=== PATIENT | female | born 1990 | race Caucasian/White ===

== ENCOUNTER 2016-11-15 18:01 | Inpatient (IN) | payer OTHER ==
[~2016-11-15] VITALS: Ht 167.6 cm; Wt 86.0 kg
[2016-11-15] MEDS ORDERED: ZANTTAB PO (18:13)
[2016-11-15] MEDS ORDERED: PRENTAB9 PO (18:13)
[2016-11-15 18:22] VITALS: BP 128/64
[2016-11-15] MEDS ORDERED: LR 1,000 ML IV SCH (18:47)
[2016-11-15] MEDS ORDERED: PENICILLIN G POTASSIUM IV 5 MU in D5W MINI-BAG PLUS 100 ML IV STA (18:47)
[2016-11-15 19:18] LABS: MEAN CORPUSCULAR HEMOGLOBIN 31.8 pg (27.0-33.0); MEAN CORPUSCULAR VOLUME 93.3 fl (80.0-96.0); WHITE BLOOD COUNT 13.6 K/mm3 (4.0-10.0)
[2016-11-15] MEDS ORDERED: FENTANYL 2MCG/ML ROPIVACAINE 0.2% IN 0.9% NACL 200ML IVBAG As Ordered ONE (19:50)
[2016-11-15] MEDS ORDERED: EPIDURAL COMMENT XX SCH (21:00)
[2016-11-15] MEDS ORDERED: ONDANSETRON 4MG/2ML VIAL (J2405) IV PRN ×2 (21:00→23:45)
[2016-11-15] MEDS ORDERED: NALOXONE INJ 0.4 MG/1 ML VIAL (J2310) IV PRN (21:00)
[2016-11-15] MEDS ORDERED: ePHEDrine SULFATE 25 MG/5 ML(5MG/ML) SYRINGE IV PRN (21:00)
[2016-11-15] MEDS ORDERED: FENTANYL/ROPIVACAINE/NACL BAG 200 ML EPIDURAL SCH (21:00)
[2016-11-15] MEDS ORDERED: EPIDURAL/PCA KEYS XX PRN (21:00)
[2016-11-15] MEDS ORDERED: diphenhydrAMINE INJ 50MG/ML VIAL (J1200) IV PRN (21:00)
[2016-11-15] MEDS ORDERED: LACTATED RINGER'S 1000 ML IV PRN (21:00)
[2016-11-15] MEDS ORDERED: REFRIGERATOR IV KEYS XX PRN (21:00)
[2016-11-15] MEDS ORDERED: OXYTOCIN 30 UNITS IN 0.9% NaCl 500ML IV BAG (J2590) As Ordered ONE (21:16)
[2016-11-15] MEDS ORDERED: PENICILLIN G POTASSIUM IV 2.5 MU in D5W 100 ML IV SCH (23:00)
[2016-11-15] MEDS ORDERED: OXYTOCIN DRIP 30 UNITS in APPROPRIATE DILUENT 1 EA IV SCH (23:42)
[2016-11-15] MEDS ORDERED: METHYLERGONOVINE MALEATE 0.2 MG/ML VIAL (J2210) IM PRN (23:45)
[2016-11-15] MEDS ORDERED: PROMETHAZINE 25 MG TAB PO PRN (23:45)
[2016-11-15] MEDS ORDERED: DOCUSATE SODIUM 100 MG CAP PO PRN (23:45)
[2016-11-15] MEDS ORDERED: MEASLES,MUMPS,RUBELLA VACCINE INJ (MMR-II) (90707) SC SCH (23:45)
[2016-11-15] MEDS ORDERED: RHOGAM 300 MCG (1500 IU) INJ (J2790) IM SCH (23:45)
[2016-11-15] MEDS ORDERED: DIBUCAINE 1% OINTMENT 30GM TOP PRN (23:45)
[2016-11-16 01:32] VITALS: BP 131/68
[2016-11-16] MEDS: IBUPROFEN 800 MG TAB PO PRN ×3 (01:37→17:43)
[2016-11-16 05:43] VITALS: BP 119/71
[2016-11-16] MEDS: PRENATAL VITAMINS CHEWABLE TABLET PO SCH (08:20)
[2016-11-16] MEDS: FAMOTIDINE 20 MG TAB PO SCH ×2 (10:40→20:59)
[2016-11-16] MEDS: ACETAMINOPHEN 500 MG TAB PO PRN ×2 (12:37→21:02)
[2016-11-16 18:03] VITALS: BP 122/66
[2016-11-16] MEDS ORDERED: raNITIdine SYRUP 150 MG/10 ML UDC GT SCH (21:00)
[2016-11-17] MEDS: IBUPROFEN 800 MG TAB PO PRN (03:57)
[2016-11-17 05:39] VITALS: BP 110/56
[2016-11-17] MEDS: PRENATAL VITAMINS CHEWABLE TABLET PO SCH (07:32)
[2016-11-17] MEDS: FAMOTIDINE 20 MG TAB PO SCH (07:32)
[2016-11-17] MEDS ORDERED: IBUP-1114 PO (10:53)
[2016-11-17] MEDS ORDERED: ACET50TA PO (10:53)
[2016-11-17] MEDS ORDERED: DIBU1OIN TOP (10:53)
[2016-11-17] MEDS ORDERED: COLA100C5 PO (10:53)
--- NOTE | 2016-11-17 16:21 | IPN ---
DATE:11/17/2016 This lady has requested circumcision of the male . After discussing risks and benefits of circumcision medical and nonmedical indications, penile block and aftercare care, signed a witnessed the consent form answered all questions. We now await the clearance by the leather production worker.
--- NOTE | 2016-11-17 21:46 | DSES ---
DATE OF ADMISSION: 11/15/2016 DATE OF DISCHARGE: 11/17/2016 HISTORY/HOSPITAL COURSE: This lady is a 25-year-old 4, now para 3, admitted at 40 and 6/7 weeks of gestation, active labor. She had a spontaneous vaginal delivery of live male 8 pounds 2 ounces 3696 grams, scores of 9 and 9 at one and five minutes respectively. 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 On discharge today, her hemoglobin is 14.2, hematocrit 42.4 and platelets are 107. Her vital signs on discharge are blood pressure 110/56, respirations 18, pulse 68, temperature 97.6. We discussed phlebitis, cystitis, mastitis, metritis and cellulitis, diet, excise, pain management, perineal, breast and wound care. On discharge, she is normocephalic, atraumatic. Neck full range of motion. Pupils equal and reactive to light. Distal pulses symmetric. No evidence of deep venous thrombosis (DVT), pulmonary embolism (PE) or superficial phlebitis. Lungs are clear bilaterally to bases. No wheezes or rhonchi. No costovertebral angle tenderness. Uterus two below. Lochia is moderate. Four-quadrant bowel sounds are normal. Perineum is healing. No rashes, lesions or pruritus. No arthralgia, myalgia. No complaints of cough, wheezes, shortness of breath or dyspnea on exertion. No chest pain, not bleeding. Neuro complete. No incontinence, urgency or frequency. No nausea, vomiting, diarrhea or constipation. No diabetic issues. 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 Last Pap smear was 2003. Past medical history unremarkable. Surgical history unremarkable. Family she noncontributory. She does not smoke. She does not abuse drugs. Does not use alcohol. She is . There is no domestic violence. In summary we have a term gestation delivered a live male 8 pounds 2 ounces at discharge, to followup in six weeks' time at maternity clinic. Was given her medications on discharge.
== END 2016-11-17 12:00 | disposition home or self-care (01) | DRG 775 ==
LOC: M LDO 18:01 → M LDI 18:45 → M OBS 11-16 01:11
PROVIDERS: ADMIT Obstetrics & Gynecology; ATTEND Obstetrics & Gynecology
PROC: 10E0XZZ Delivery of Products of Conception, External Approach (ICD-10-PCS; principal; 2016-11-15)
DX: O48.0 Post-term pregnancy (principal); O99.824 Streptococcus B carrier state complicating childbirth; Z3A.40 40 weeks gestation of pregnancy; Z37.0 Single live birth

== ENCOUNTER 2017-02-16 11:07 | Day surgery (SDC) | payer OTHER ==
[~2017-02-16] VITALS: Ht 167.6 cm; Wt 81.6 kg
[~2017-02-16 11:07] MED LIST: ACET50TA PO; COLA100C5 PO; DIBU1OIN TOP; IBUP-1114 PO; PRENTAB9 PO; ZANTTAB PO
[2017-02-16] MEDS ORDERED: LR 1,000 ML IV ONE (11:15)
[2017-02-16 11:45] LABS: CONTROL LINE UCG INT CTR LINE PRESENT
[2017-02-16] MEDS ORDERED: fentaNYL 100 MCG/2 ML INJECTION (J3010) As Ordered ONE (12:28)
[2017-02-16] MEDS ORDERED: MIDAZOLAM INJ 2 MG/2 ML VIAL (J2250) As Ordered ONE (12:29)
[2017-02-16] MEDS ORDERED: LIDOCAINE 1% SDV INJ 30 ML VIAL As Ordered ONE (12:57)
[2017-02-16] MEDS ORDERED: BUPIVACAINE HCL 0.25% 30 ML VIAL As Ordered ONE (12:57)
[2017-02-16] MEDS ORDERED: ONDANSETRON 4MG/2ML VIAL (J2405) As Ordered ONE (13:30)
[2017-02-16] MEDS ORDERED: PROPOFOL 200 MG/20 ML VIAL As Ordered ONE (13:30)
[2017-02-16] MEDS ORDERED: ROCURONIUM BROMIDE 50 MG/5 ML VIAL As Ordered ONE (13:30)
[2017-02-16] MEDS ORDERED: KETOROLAC 60 MG/2 ML VIAL (J1885) As Ordered ONE (13:30)
[2017-02-16] MEDS ORDERED: dexameTHASONE 4 MG/ML 1ML VIAL (J1100) As Ordered ONE (13:30)
[2017-02-16] MEDS ORDERED: LIDOCAINE 2% INJ 100 MG/5 ML SDV (FOR ANES.) As Ordered ONE (13:30)
[2017-02-16] MEDS ORDERED: HYDROmorphone HCL 2 MG/ML 1ML VIAL (J1170) As Ordered ONE (13:39)
[2017-02-16] MEDS ORDERED: SUGAMMADEX SODIUM 500 MG/5 ML VIAL (BRIDION) As Ordered ONE (13:58)
[2017-02-16] MEDS ORDERED: PERCOCET 5MG/325MG TAB As Ordered ONE (14:17)
[2017-02-16] MEDS: PERCOCET 5MG/325MG TAB PO PRN ×2 (14:27→14:59)
[2017-02-16] MEDS ORDERED: LR 1,000 ML IV SCH (14:30)
[2017-02-16] MEDS ORDERED: METOCLOPRAMIDE INJ 10MG/2ML VIAL (J2765) IV PRN (14:30)
[2017-02-16] MEDS ORDERED: ONDANSETRON 4MG/2ML VIAL (J2405) IV PRN (14:30)
[2017-02-16] MEDS ORDERED: NORCO, ANEXSIA 5/325MG TABLET (HYDROcodone/ACETAMINOPHEN) PO PRN (14:30)
[2017-02-16] MEDS ORDERED: MEPERIDINE INJ 25 MG/ML VIAL (J2175) IV PRN (14:30)
[2017-02-16] MEDS ORDERED: fentaNYL 100 MCG/2 ML INJECTION (J3010) IV PRN (14:30)
[2017-02-16 16:20] VITALS: BP 136/70
--- NOTE | 2017-04-16 10:23 | ROOPDOC ---
[facility] Report Of Operation Report of Operation DATE OF PROCEDURE: 02/16/17 PREPROCEDURE DIAGNOSES: Diastases of abdominal wall, small umbilical hernia. POSTPROCEDURE DIAGNOSES: Diastases of midline abdominal wall, no hernia defect found. PROCEDURE: Diagnostic laparoscopy. SURGEON: Vicente Quijano MD [employer] INSTRUMENT REPAIRER: ANESTHESIA: Gen. anesthesia. ESTIMATED BLOOD LOSS: Approximately 5 mL. COMPLICATIONS: None. REMARKS: 26-year-old female, moderately obese, abdomen fairly rounded with a wide diastases of the abdominal wall complaining of a lump with discomfort just on top of her umbilicus.. PROCEDURE NOTE: Despite feeling the possible lump at the area of the umbilicus I did not see any distinct fascial defect at the umbilicus. DESCRIPTION OF PROCEDURE: .Patient was given a dose of Ancef 2 g IV for prophylactic antibiotic. She is brought to the operating room, placed supine on the table. Sequential Compression boots placed on both lower extremities for DVT prophylaxis. General endotracheal anesthesia started without any difficulty. Her abdomen was then prepped and draped widely in usual sterile fashion.Timeout was performed to verify correct patient, procedure site and additional clinical information prior to beginning the procedure. Entry to the abdomen done through a small incision at the left upper quadrant area, laterally placed close to the anterior axillary line. The Veress needle was inserted. Intra-abdominal location confirmed with saline drop technique. CO2 insufflation done to a pressure of 15 mmHg. Using the same incision a 5 mm Visiport was placed under direct vision of laparoscope. She was placed in a slight right lateral decubitus to gain some space on the left side of the abdomen. A second working port was placed at the left lower quadrant area above the anterior superior iliac spine level. We used a 5 mm 30 laparoscope for the procedure. On entry into the abdomen, there was some thick fatty deposition along the peritoneum just below the umbilicus. She hasn't attenuated falciform ligament several centimeters above this area. Clearly the midline area is weak secondary to the diastases of the rectus muscles which extends from the epigastric area to below the umbilical skin cleft. On palpation the area underneath the umbilicus is quite thinned out but there was no fascial defect. I could push the area down quite a lot without any bulging defect. I cleared off the fatty appendage from the peritoneum from just below the umbilicus to the level of the falciform ligament to see if there is any clear fascial defect that needs to be repaired but they could not find any. At this point with the absence of a clear fascial defect I terminated the procedure. I severed the area underneath where we worked to make sure there is no active bleeding or injury. The abdomen was then deflated and the 5 mm ports were removed. 4-0 Monocryl was used to close the 25 mm port incisions. Dermabond was then used to cover the incision. Patient was then promptly awakened, extubated and brought to recovery room stable. Findings intraoperatively were discussed with the patient in the postoperative holding area. VICENTE QUIJANO MD Apr 16, 2017 10:23
== END 2017-02-16 16:46 | disposition home or self-care (01) ==
LOC: M SDC 11:07
PROVIDERS: ATTEND Surgery
DX: M62.08 Separation of muscle (nontraumatic), other site (principal); K21.9 Gastro-esophageal reflux disease without esophagitis; G43.909 Migraine, unspecified, not intractable, without status migrainosus; R06.83 Snoring
CPT/HCPCS: 49320; 84703; J0690; J1100; J1170; J1885; J2250; J2405; J3010

== ENCOUNTER → 2018-04-26 | Outpatient (REF) | payer OTHER ==
[2018-04-26 14:14] LABS: BASO % 0.5 % (0.0-1.0); EOS # 0.1 10^3/uL (0.0-0.50); EOS % 1.2 % (0.0-3.0); HEMOGLOBIN 14.5 g/dl (12.0-15.5); IMMATURE GRANULOCYTE % 0.3 % (0-3.0); LYMPH # 1.7 10^3/uL (1.5-6.5); LYMPH % 26.6 % (24.0-44.0); MEAN CORPUSCULAR HEMOGLOBIN 30.2 pg (27.0-33.0); MEAN CORPUSCULAR HGB CONC 33.7 g/dl (32.0-36.5); MEAN CORPUSCULAR VOLUME 89.6 fl (80.0-96.0); MONO # 0.5 10^3/uL (0.0-0.8); MONO % 7.5 % (0.0-5.0); NEUTROPHILS # 4.2 10^3/uL (1.8-7.7); NEUTROPHILS % 63.9 % (36.0-66.0); PLATELET COUNT, AUTOMATED 171 10^3/uL (150-450); RED CELL DISTRIBUTION WIDTH 12.5 % (11.5-14.5); WHITE BLOOD COUNT 6.5 10^3/uL (4.0-10.0)
[2018-04-26 14:35] LABS: ALBUMIN 3.8 GM/DL (3.2-5.2); ALBUMIN/GLOBULIN RATIO 0.97 (1.00-1.93); ALKALINE PHOSPHATASE 102 U/L (45-117); ALT/SGPT 17 U/L (12-78); ANION GAP 6 MEQ/L (8-16); AST/SGOT 8 U/L (7-37); BILIRUBIN,TOTAL 0.6 MG/DL (0.2-1.0); BLOOD UREA NITROGEN 11 MG/DL (7-18); CALCIUM LEVEL 8.7 MG/DL (8.5-10.1); CARBON DIOXIDE LEVEL 28 MEQ/L (21-32); CHLORIDE LEVEL 105 MEQ/L (98-107); CREATININE FOR GFR 0.89 MG/DL (0.55-1.30); GLOMERULAR FILTRATION RATE > 60.0 (>60); POTASSIUM SERUM 4.3 MEQ/L (3.5-5.1); RHEUMATOID FACTOR QUANT < 10.0 IU/ML (<15.0); SODIUM LEVEL 139 MEQ/L (136-145); TOTAL 25(OH) VITAMIN D 29.4 NG/ML (30.0-100.0); TOTAL PROTEIN 7.7 GM/DL (6.4-8.2)
[2018-04-26 14:43] LABS: ERYTHROCYTE SEDIMENTATION RATE 7 mm/hr (0-20)
[2018-04-26 14:58] LABS: GLUCOSE, FASTING 81 MG/DL (70-100)
[2018-04-27 14:14] LABS: ANTINUCLEAR ANTIBODIES DIRECT Negative (Negative)
== END ==
LOC: M LABNEURO 09:07
DX: R51 Headache (principal)
CPT/HCPCS: 84443

== ENCOUNTER 2020-01-18 15:00 | Emergency (ER) | payer OTHER ==
[~2020-01-18] VITALS: Ht 167.6 cm; Wt 72.7 kg
[~2020-01-18 15:00] MED LIST changes: -ACET50TA PO; +MAPA500T2 PO; +ZANT150T40 PO; -ZANTTAB PO
[2020-01-18 15:01] VITALS: BP 128/75
[2020-01-18] MEDS ORDERED: ZOLO25TA PO (15:11)
[2020-01-18] MEDS ORDERED: ZOLO50TA PO (15:11)
[2020-01-18] MEDS ORDERED: NORCO, ANEXSIA 5/325MG TABLET (HYDROcodone/ACETAMINOPHEN) PO ONE (16:00)
[2020-01-18] MEDS ORDERED: CYCLOBENZAPRINE 5MG TABLET PO ONE (16:00)
[2020-01-18] MEDS ORDERED: NORC1TAB7 PO (16:05)
[2020-01-18] MEDS ORDERED: CYCL5TAB PO (16:05)
== END 2020-01-18 16:13 | disposition home or self-care (01) ==
LOC: M ED 15:00
DX: S76.111A Strain of right quadriceps muscle, fascia and tendon, initial encounter (principal); X58.XXXA Exposure to other specified factors, initial encounter; Y92.018 Other place in single-family (private) house as the place of occurrence of the external cause; F41.9 Anxiety disorder, unspecified; Z79.899 Other long term (current) drug therapy

== ENCOUNTER → 2022-07-19 | Outpatient (CLI) | payer OTHER ==
[~2022-07-19] MED LIST changes: +CYCL5TAB PO; +NORC1TAB7 PO; +ZOLO25TA PO; +ZOLO50TA PO
== END ==
LOC: M WHC 07:32
PROVIDERS: ATTEND Physician Assistant
DX: N63.10 Unspecified lump in the right breast, unspecified quadrant (principal)